=== PATIENT | male | born 1990 | race American Indian/Alaskan Native ===

== ENCOUNTER 2019-10-06 10:11 | Emergency (ER) | payer SELFPAY ==
[2019-10-06 10:17] VITALS: BP 131/84
--- NOTE | 2019-10-06 13:03 | Emergency Department Report ---
Chief Complaint: Extremity Problem,Nontraumatic Stated Complaint: EAR AND TOES SWOLLEN, EARS ARE DISCHARING Time Seen by Provider: 10/06/19 12:50 - HPI History of Present Illness: SEVERAL DAY HX OF EARS BE "STUFFED" AND TOES SWOLLEN - ROS Review of Systems: TOE L FOOT SWOLLEN B EAR STUFFINESS NO COUGH NO FEVER NO CP NO SOB - Exam Vital Signs: Vital Signs 10/06/19 10:17 Temperature 98.7 F Pulse Rate 88 Respiratory 16 Rate Blood Pressure 131/84 [Right] O2 Sat by Pulse 99 Oximetry Physical Exam: A/O EARS WITH CERUMEN; NO INFECTION ABD SNT NO APPRECIABLE SWELLING OF TOES AMBULATORY NEUROVASC INTACT MSE screening note: Focused history and physical exam performed. Due to findings the following was ordered: NO LIFE THREAT Patient discussed with doctor:: TAJ VILLAGOMEZ ED Disposition for MSE Disposition: MED SCREENING EXAM-LEFT Condition: Stable Time of Disposition: 13:03
== END 2019-10-06 13:43 | disposition left against medical advice (07) ==
LOC: ED 10:11
DX: M79.89 Other specified soft tissue disorders (principal)
CPT/HCPCS: 99281